=== PATIENT | female | born 1955 | race Caucasian/White ===

== ENCOUNTER → 2022-05-23 11:07 | Outpatient (CLI) | payer SELFPAY ==
--- NOTE | ~2022-05-23 | XR_ITS ---
XR chest 2V DATE: 05/23/2022 11:50 INDICATION: Shortness of breath TECHNIQUE: PA and lateral views COMPARISON: None FINDINGS: Normal heart size. No hilar or mediastinal enlargement. No pulmonary infiltrate or consolid ation, pleural effusion or pulmonary vascular congestion or pneumothorax. Included skeletal structures are unremarkable. IMPRESSION: No active cardiopulmonary disease Reviewed, dictated and finalized at location B. 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
== END ==
PROVIDERS: PCP Family Medicine; Visit Provider Physician Assistant Medical
DX: R06.02 Shortness of breath (principal)
CPT/HCPCS: 71046

== ENCOUNTER 2023-02-12 01:15 | Day surgery (SDC) | payer OTHER, SELFPAY ==
[2023-01-30 10:06] VITALS: BMI 25.9
[2023-02-12 09:19] VITALS: BP 123/77; PULSE 64; RESP 18; TEMP 36.3; O2SAT 100; BMI 25.4
[2023-02-12] MEDS: LACTATED RINGERS 1,000 ML 150 ML IV CONT (09:40)
--- NOTE | 2023-02-12 09:57 | WPDANESEPPF ---
Anes - Initial Pre Proc Eval Procedure: Operation Date: 02/12/23 10:45 Proposed Procedures p Screening Colonoscopy - Chris Andrews MD Date/Time: 02/12/23 09:57 Surgeon: Chris Andrews MD Pre Op Diagnosis: neoplasm screening Patient Data Age: 67 Gender: F Height: 1.68 m Weight: 71.7 kg Last Vital Signs Temp 97.4 F L 02/12/23 09:19 Pulse 64 02/12/23 09:19 Resp 18 02/12/23 09:19 BP 123/77 02/12/23 09:19 Pulse Ox 100 02/12/23 09:19 O2 Del Method Room Air 02/12/23 09:19 Allergies Allergy/AdvReac Type Severity Reaction Status Date / Time diclofenac [From Voltaren] AdvReac Gastrointestinal Verified 12/11/22 11:34 Upset Home Medications Medication Instructions Recorded Confirmed Type cholecalciferol (vitamin D3) 25 25 mcg PO DAILY 05/22/22 01/30/23 History mcg/drop (1,000 unit/drop) oral drops cyanocobalamin (vitamin B-12) 1,000 mcg PO DAILY 05/22/22 01/30/23 History 1,000 mcg capsule omega-3 fatty acids 500 mg capsule 500 mg PO DAILY 05/22/22 01/30/23 History calcium lactate 100 mg calcium 300 mg PO DAILY 01/30/23 01/30/23 History tablet citalopram 10 mg tablet 5 mg PO EVERY OTHER DAY 01/30/23 01/30/23 History Patient hx anesthesia problems: none Family hx anesthesia problems: none Results Review: All pre-operative results and documents have been reviewed as part of the pre-operative evaluation. COUNTS INCLUDE 234 BEDS AT THE [facility] Past Medical History Medical History Annual physical exam Blepharitis Cerumen impaction Post hysterectomy menopause Screening for colon cancer Upper respiratory tract infection Wears glasses Surgical History Surgical History H/O: hysterectomy Family History Family History Sibling Carcinoma of colon Mother Hypertension Cerebrovascular accident Social History Social History Smoking status: Former smoker Tobacco type: cigarettes Alcohol intake: current Drinks per week: 2 Substance use: never Substance use type: does not use Lack of Transportation: No Lack of Food: Never True Current Housing: I Have Housing Concerned About Future Housing: No Difficulty Paying Gas/Electric Bills: No Difficulty Paying for Meds: No Currently Unemployed: No Difficulty w/ Childcare or Family Care: No Living arrangements: with family Occupation/Education: retired Gender identity (if verbalized by the patient): Female Sexual Orientation (if Verbalized by the Patient): Straight or Heterosexual Spiritual care concerns: No Anes - Eval Final PreProcedure Day of Procedure 02/12/23 09:57 Patient weight: normal Heart: regular rate and rhythm Lungs: clear to auscultation Airway: Mallampati scale class II Neurological: alert and oriented Last oral intake: >/= 8 hours ASA classification: II Emergent: no Anesthetic plan: proceed Anesthesia type and monitoring: general GIVS and standard monitoring Results Review: All pre-operative results and documents have been reviewed as part of the pre-operative evaluation. Informed Consent: The patient's anesthetic plan and its attendant risks and benefits were discussed with the patient/family/POA. Questions were solicited and answers provided to the satisfaction of the patient/family/POA.
--- NOTE | 2023-02-12 10:15 | PM.HPGS ---
History of Present Illness History of Present Illness Consent: Risks, benefits, and alternatives have been discussed and questions answered. Patient agrees to proceed with procedure. Chief complaint: family history of colon cancer Narrative: Katie Sanchez is a 67 year old female Presents for screening colonoscopy. Patient's current weight appetite and bowel movements are normal. Patient denies abdominal pain. She has had no bleeding. Family history is significant 1 brother had colon cancer another brother has an unspecified: Lesion that is being monitored. Patient reports her own bowel habits are normal at present she presents today for screening exam. Review of Systems Review of Systems: Review of systems noncontributory. [facility] Past Medical History Medical History Annual physical exam Blepharitis Cerumen impaction Post hysterectomy menopause Screening for colon cancer Upper respiratory tract infection Wears glasses Surgical History Surgical History H/O: hysterectomy Family History Family History Sibling Carcinoma of colon Mother Hypertension Cerebrovascular accident Social History Social History Smoking status: Former smoker Tobacco type: cigarettes Alcohol intake: current Drinks per week: 2 Substance use: never Substance use type: does not use Lack of Transportation: No Lack of Food: Never True Current Housing: I Have Housing Concerned About Future Housing: No Difficulty Paying Gas/Electric Bills: No Difficulty Paying for Meds: No Currently Unemployed: No Difficulty w/ Childcare or Family Care: No Living arrangements: with family Occupation/Education: retired Gender identity (if verbalized by the patient): Female Sexual Orientation (if Verbalized by the Patient): Straight or Heterosexual Spiritual care concerns: No Meds Home Medications and Allergies Home Medications Medication Instructions Recorded Confirmed Type cholecalciferol (vitamin D3) 25 25 mcg PO DAILY 05/22/22 01/30/23 History mcg/drop (1,000 unit/drop) oral drops cyanocobalamin (vitamin B-12) 1,000 mcg PO DAILY 05/22/22 01/30/23 History 1,000 mcg capsule omega-3 fatty acids 500 mg capsule 500 mg PO DAILY 05/22/22 01/30/23 History calcium lactate 100 mg calcium 300 mg PO DAILY 01/30/23 01/30/23 History tablet citalopram 10 mg tablet 5 mg PO EVERY OTHER DAY 01/30/23 01/30/23 History Allergies Allergy/AdvReac Type Severity Reaction Status Date / Time diclofenac [From Voltaren] AdvReac Gastrointestinal Verified 12/11/22 11:34 Upset Vital Signs Vital Signs - 24 hr 02/12/23 09:19 Temperature 97.4 F L Pulse Rate 64 Respiratory Rate 18 Blood Pressure 123/77 Pulse Oximetry 100 Oxygen Delivery Room Air Exam Narrative: Physical exam reveals patient to be alert. Vital signs stable. HEENT exam is unremarkable. Patient is anicteric. Lungs are clear to auscultation and percussion. Heart is without murmur or extra sounds. Abdomen bowel sounds present soft nontender with no organomegaly. Digital external rectal exam normal. Assessment and Plan Assessment and plan (1) Family history of malignant neoplasm of colon in first degree relative diagnosed when younger than 60 years of age: Code(s): Z80.0 - Family history of malignant neoplasm of digestive organs Status: Acute Assessment and Plan: Patient's brother has had colon cancer. Plan for colonoscopy now and at 5 year intervals. Further recommendations may be given after endoscopy.
[2023-02-12] MEDS: SIMETHICONE ORAL SUSPENSION 20 MG/0.3 ML 30 ML BOTTLE 0.6 ML IRRIGATION (10:41)
[2023-02-12 10:49] VITALS: BP 120/77; PULSE 66; RESP 19; O2SAT 98
[2023-02-12 10:59] VITALS: BP 130/84; PULSE 63; RESP 22; O2SAT 99
[2023-02-12 11:09] VITALS: BP 127/79; PULSE 60; RESP 25; O2SAT 99
== END 2023-02-12 11:16 | disposition home or self-care (01) ==
PROVIDERS: PCP Family Medicine; Visit Provider Internal Medicine Gastroenterology
PROC: 0DJD8ZZ Inspection of Lower Intestinal Tract, Via Natural or Artificial Opening Endoscopic (ICD-10-PCS; CPT 45378; principal; 2023-02-12 10:45)
DX: Z12.11 Encounter for screening for malignant neoplasm of colon (principal); K64.8 Other hemorrhoids; Z80.0 Family history of malignant neoplasm of digestive organs; Z87.891 Personal history of nicotine dependence
CPT/HCPCS: G0105; J2405; J2704; J7120

== ENCOUNTER 2023-09-29 13:02 | Outpatient (CLI) | payer OTHER, SELFPAY ==
--- NOTE | ~2023-09-29 | DEXA_ITS ---
Bone Density Report Name: HERNAN IZQUIERDO Age: 67 Sex: Female Ethnicity: White Date of : 1955 Indication: postmenopausal; screening for osteoporosis; history of glucocorticoids; hysterectomy; Referring Provider: MARILYN DUQUE Study: Bone densitometry was performed. Exam Date: September 29, 2023 Accession number: [id number] Bone Density: Region BMD T-score Z-score Classification AP Spine(L1-L4) 1.034 -0.1 1.7 Normal Femoral Neck (Left) 0.712 -1.2 0.3 Osteopenia Total Hip (Left) 0.837 -0.9 0.4 Normal Femoral Neck (Right) 0.686 -1.5 0.1 Osteopenia Total Hip (Right) 0.806 -1.1 0.2 Osteopenia Total Hip Mean 0.821 -1.0 0.3 Normal World Health Organization criteria for BMD impression classify patients as: Normal (T-score at or above -1.0), Osteopenia (T-score between -1.0 and -2.5), or Osteoporosis (T-score at or below -2.5). 10-year Fracture Risk(1): Major Osteoporotic Fracture 14% Hip Fracture 1.7% Reported Risk Factors: [place] (), Neck BMD=0.686, BMI=25.4, glucocorticoids (1) FRAX(R) Version 3.08. Fracture probability calculated for an untreated patient. Fracture probability may be lower if the patient has received treatment. Clinical Information Provided by Patient: Has taken Glucocorticoids Has used the following medications: Vitamin D, Calcium Has the following medical conditions: Hysterectomy Patient maximum height was 66 Menopause Age: 54 Drinks caffeinated beverages Onset of menses at age 15 Number of children 2 Impression: The patient has low bone mass, based on the Right Femoral Neck T-score. The patient has an estimated ten-year risk of hip fracture of 1.7% and an estimated ten-year risk of major fracture of 14%, based on the WHO FRAX algorithm. The patient has risk factors, including: history of glucocorticoid therapy. Discussion: BONE DENSITY IS LOW AT ONE OR MORE SKELETAL SITES. This patient's lowest T-score is low at one or more skeletal sites. It meets the World Health Organization's (WHO) criteria for ?low bone mass? (T-score between -1.0 and -2.5). The patient's 10-year risk of fracture as calculated by FRAX is less than the threshold where pharmacological therapy is recommended by the National Osteoporosis Foundation (NOF). However, all treatment decisions require clinical judgment and consideration of individual patient factors, including patient preferences, comorbidities, previous drug use, risk factors not captured in the FRAX model (e.g., frailty, falls, vitamin D deficiency, increased bone turnover, interval significant decline in bone density) and possible under or overestimation of fracture risk by FRAX. The patient should follow a healthful lifestyle (good nutrition with adequate calcium and vitamin D, and appropriate weight-bearing exerci
== END 2023-09-29 13:03 | disposition home or self-care (01) ==
PROVIDERS: PCP Physician Assistant Medical; Visit Provider Physician Assistant Medical
DX: M85.89 Other specified disorders of bone density and structure, multiple sites (principal); E28.39 Other primary ovarian failure; Z13.820 Encounter for screening for osteoporosis
CPT/HCPCS: 77080

== ENCOUNTER 2023-12-02 07:02 | Outpatient (CLI) | payer OTHER, SELFPAY ==
--- NOTE | ~2023-12-02 | MR_ITS ---
MRI of the cervical spine Clinical History: Cervicalgia Technique: Axial T2-weighted and gradient images, and sagittal T1-weighted, T2-weighted, and STIR mack ges were acquired. Findings: There is no fracture or subluxation of the cervical spine. Vertebral bodies maintain normal height and alignment. No bone marrow signal abnormality seen. At C2-C3, there is no disc bulge or herniation. No spinal canal stenosis, cord compression, or neural foraminal narrowing seen. At C3-C4, there is mild disc osteophyte complex with probable mild bilateral neural foraminal narrowi ng. No spinal canal stenosis or cord compression. At C4-C5, there is probable mild bilateral neural foraminal narrowing with mild facet arthropathy. No central canal stenosis, cord compression. No disc bulge or herniation. At C5-C6, there is no disc bulge or herniation. No spinal canal stenosis, cord compression, or defini te neural foraminal narrowing. At C6-C7, there is no significant disc bulge or herniation. No spinal canal stenosis, cord compressio n, or neural foraminal narrowing. No abnormal signal seen in the spinal cord. Paravertebral soft tissues are unremarkable. Impression: Mild degenerative spondylosis, as above. Reviewed, dictated and finalized at location . Impression: Mild degenerative spondylosis, as above.
== END 2023-12-02 07:03 ==
LOC: MICIMG 07:02
PROVIDERS: PCP Physician Assistant Medical; Visit Provider Physician Assistant Medical
DX: M47.892 Other spondylosis, cervical region (principal)
CPT/HCPCS: 72141